=== PATIENT | female | born 1955 | race Caucasian/White ===

== ENCOUNTER 2020-10-30 11:58 | Outpatient (CLI) | payer MEDICARE ==
[~2020-10-30 11:58] MED LIST: ALPR1TAB2 PO; ATOR20TA37 PO; MECL-101 PO; POTA20TA91 PO
[2020-10-30] MEDS ORDERED: ALPRazolam 1MG TAB ONE (12:27)
[2020-10-30] MEDS ORDERED: GADOTERATE 5 MMOL/10ML SYR ONE (13:19)
== END 2020-10-30 23:59 | disposition home or self-care (01) ==
LOC: RAD 11:58
PROVIDERS: ATTEND Family Medicine
DX: R42 Dizziness and giddiness (principal); H93.11 Tinnitus, right ear
CPT/HCPCS: 70553; A9575